=== PATIENT | male | born 1985 | race Caucasian/White ===

== ENCOUNTER 2024-05-27 14:20 | Emergency (ER) | payer MEDICARE, MEDICAID, SELFPAY ==
--- NOTE | 2024-05-27 14:30 | ED_ITS ---
HPI - General Adult General Chief complaint: General Medical Stated complaint: wants to r/o sepsis Time Seen by Provider: 05/27/24 20:14 Source: patient Limitations: no limitations History of Present Illness ED Provider: Irma Cast PA-C HPI narrative: 38-year-old male With the extensive psychiatric history presents requesting a 2nd opinion. Patient was recently admitted to [facility], he was discharged 2 days ago, after ICU admission for anticholinergic toxicity . Patient states he is concerned he is septic. Patient states he was reading about anticholinergic toxicity, and that he thinks instead he was septic.Denies fevers. Patient has pending follow up with his primary care provider next week. Related Data Allergies Allergy/AdvReac Type Severity Reaction Status Date / Time prazosin AdvReac Unknown Verified 05/27/24 14:39 Review of Systems 2 Review of Systems: Yes all other systems are reviewed and are negative Constitutional: Constitutional: Denies fatigue and Denies fever(s) Cardiovascular: Cardiovascular: Denies chest pain Respiratory: Respiratory: Denies cough Gastrointestinal: Gastrointestinal: Denies abdominal pain, Denies diarrhea, Denies nausea and Denies vomiting Endocrine: Endocrine: Denies fatigue [facility] Past Medical History Attestation statement: The following information was validated with the patient. Social History Social History Advance Directives: No Advance Directives Information Provided: Yes Do you have a plan to hurt others: No Plan Physical Exam ED Vital Signs: Vital Signs - 24 hr 05/27/24 14:31 05/27/24 20:27 05/27/24 21:58 Temperature 98.7 F 98.1 F 97.8 F Pulse Rate 79 65 85 Respiratory Rate 18 14 18 Blood Pressure 130/84 116/65 121/85 Pulse Oximetry 97 96 97 Oxygen Delivery Method Room Air Room Air Room Air BMI result Body Mass Index 31.7 Course Course Course Narrative: This is a rapid medical exam performed by Teresa Balderrama NP: Additional HPI, ROS, PE not included below will be deferred to primary provider. Patient is a 38-year-old male presenting to the emergency department stating that he was recently discharged from the ICU at [facility], states that the ICU docs weren't sure what was wrong with me, they thought it was anticholinergic syndrome, but I basically checked off all the boxes for sepsis and want a second opinion. States he had a bad headache and vomiting upon discharge, has been unable to sleep. Headache has improved. VS normal in triage. Reports recent influenza, pna, states had blisters to bottom of feet which were bleeding and popped. Plan: viral panel, labs, will obtain records from [facility] Medical Decision Making Medical Decision Making MDM Narrative: 38-year-old male With the extensive psychiatric history presents requesting a 2nd opinion. Patient was recently admitted to [facility], he was discharged 2 days ago, after ICU admission for anticholinergic toxicity . Patient states he is concerned he is septic. Patient states he was reading about anticholinergic toxicity, and that he thinks instead he was septic.Denies fevers. Patient has pending follow up with his primary care provider next week. Problem: Psychiatric illness History: Per patient I have considered the following differential diagnoses: Anxiety over health, Plan: I have relayed to the patient that I reviewed his chart from [facility]. Sepsis was considered during his ICU admission, he was febrile, they worked him up for a source, he received empiric antibiotics. The blood cultures had to have resulted negative prior to his discharge, he was there for 6 days. I also relate to the patient that his vitals are completely normal here in the emergency room he does not have a fever, his labs are also completely not suggestive of sepsis. I also relayed to him that his discharge diagnoses entailed toxic ingestion secondary to drug ingestion with delirium, I explained the parameters to him. He seems relieved. We will discharge now. Lab Data 05/27/24 14:45 05/27/24 14:45 Labs: Lab Results 05/27/24 Range/Units 14:45 WBC 9.7 (4.8-10.8) X10*3/uL RBC 5.07 (4.60-5.80) X10*6/uL Hgb 14.5 (14.0-18.0) g/dl Hct 43.6 (42.0-52.0) % MCV 86.0 (80.0-98.0) fL MCH 28.6 (27.0-33.0) pg MCHC 33.3 (31.0-36.0) g/dl RDW 13.9 (11.0-16.0) % Plt Count 363 (160-400) X10*3/uL MPV 8.7 L (9.4-12.4) fL Immature Gran % (Auto) 0.7 H (0.0-0.4) % Neut % (Auto) 54.3 (45-73) % Lymph % (Auto) 33.0 (20-40) % Terry % (Auto) 9.3 (2-11) % Eos % (Auto) 1.7 (0-4) % Baso % (Auto) 1.0 (0-2) % Lymph # (Auto) 3.2 (1.2-4.9) X10*3/uL Terry # (Auto) 0.9 (0.1-1.2) X10*3/uL Eos # (Auto) 0.2 (0.0-0.4) X10*3/uL Baso # (Auto) 0.1 (0.0-0.2) X10*3/uL Abs Immat Gran (auto) 0.07 H (0.00-0.03) X10*3/uL Absolute Neuts (auto) 5.3 (2.0-8.3) x10*3/uL Absolute Nucleated RBC 0.000 (0.0-0.012) X10*3/uL Nucleated RBC % (auto) 0.0 (0.0-0.2) /100WBC Sodium 145 (135-145) mmol/L Potassium 4.2 (3.3-5.1) mmol/L Chloride 113 H (96-108) mmol/L Carbon Dioxide 26 (22-29) mmol/L Anion Gap 10 L (12-20) BUN 14 (9-16) mg/dL Creatinine 0.97 (0.5-1.4) mg/dL Estim Creat Clear Calc 113.6 Estimated GFR > 60 Random Glucose 89 (60-115) mg/dL Calcium 9.6 (8.4-10.2) mg/dL Magnesium 1.9 (1.6-2.6) mg/dL Total Bilirubin 0.5 (0.0-1.0) mg/dL AST 20 (5-37) U/L ALT 27 (0-40) U/L Alkaline Phosphatase 67 (39-117) U/L Total Protein 7.0 (6.5-8.0) g/dL Albumin 4.6 (3.5-5.0) g/dL Influenza Type A (PCR) NEGATIVE (Negative) Influenza Type B (PCR) NEGATIVE (Negative) RSV RNA Qual (PCR) NEGATIVE (Negative) SARS-CoV-2 RNA (RT-PCR) NEGATIVE (Negative) Discharge Plan Discharge Clinical Impression: Anxiety about health Patient Disposition: Home, Self-Care Additional Instructions: all of your screening labs were completely normal, you were vitals were completely normal as well. You were not septic. Sepsis was officially ruled out prior to your discharge from [facility]. I reviewed the paperwork from your recent admission. Continue to follow up with your healthcare providers as an outpatient. Stand Alone Forms: Work/School Release Interventions: ED Discharge Assessment Last Done: 05/27/24 21:58 Discharge Date/Time: 05/27/24 22:08 Print Language: Portuguese
[2024-05-27 14:31] VITALS: BP 130/84; PULSE 79; RESP 18; TEMP 37.1; O2SAT 97; BMI 31.7
[2024-05-27 14:50] LABS: MANUAL DIFF FLAG NO
[2024-05-27 14:53] LABS: Basophils Absolute Auto 0.1 X10*3/uL (0.0-0.2); Eosinophils Absolute Auto 0.2 X10*3/uL (0.0-0.4); Eosinophils Percent Auto 1.7 % (0-4); Hematocrit 43.6 % (42.0-52.0); Hemoglobin 14.5 g/dl (14.0-18.0); Imm Gran Abs Auto 0.07 X10*3/uL (0.00-0.03); Imm Gran Pct Auto 0.7 % (0.0-0.4); Lymphocytes Absolute Auto 3.2 X10*3/uL (1.2-4.9); Mean Corpuscular HGB Conc 33.3 g/dl (31.0-36.0); Mean Corpuscular Hemoglobin 28.6 pg (27.0-33.0); Mean Platelet Volume 8.7 fL (9.4-12.4); Monocytes Absolute Auto 0.9 X10*3/uL (0.1-1.2); Monocytes Percent Auto 9.3 % (2-11); Neutrophils Absolute Auto 5.3 x10*3/uL (2.0-8.3); Neutrophils Percent Auto 54.3 % (45-73); Platelet Count 363 X10*3/uL (160-400); Red Blood Count 5.07 X10*6/uL (4.60-5.80); Red Cell Distribution Width 13.9 % (11.0-16.0); White Blood Count 9.7 X10*3/uL (4.8-10.8)
[2024-05-27 15:08] LABS: Alanine Aminotransferase 27 U/L (0-40); Albumin Level 4.6 g/dL (3.5-5.0); Alkaline Phosphatase 67 U/L (39-117); Anion Gap 10 (12-20); Aspartate Amino Transferase 20 U/L (5-37); Bilirubin Total 0.5 mg/dL (0.0-1.0); Blood Urea Nitrogen 14 mg/dL (9-16); Calcium 9.6 mg/dL (8.4-10.2); Carbon Dioxide 26 mmol/L (22-29); Chloride 113 mmol/L (96-108); Creatinine Clr Calc Pharmacy 113.6; Estimated Glomerular Filt Rate > 60; Glucose Random 89 mg/dL (60-115); Magnesium 1.9 mg/dL (1.6-2.6); Potassium 4.2 mmol/L (3.3-5.1); Sodium 145 mmol/L (135-145)
[2024-05-27 15:31] LABS: Influenza A PCR NEGATIVE (Negative); Influenza B PCR NEGATIVE (Negative); Resp Syncy Virus RNA Qual PCR NEGATIVE (Negative); SARS COV2 PCR INHOUSE NEGATIVE (Negative)
[2024-05-27 20:27] VITALS: BP 116/65; PULSE 65; RESP 14; TEMP 36.7; O2SAT 96
[2024-05-27 21:58] VITALS: BP 121/85; PULSE 85; RESP 18; TEMP 36.6; O2SAT 97
== END 2024-05-27 22:08 | disposition home or self-care (01) ==
PROVIDERS: Registered Nurse Emergency; Emergency Provider Emergency Medicine
DX: F41.8 Other specified anxiety disorders (principal); R51.9 Headache, unspecified; Z03.818 Encounter for observation for suspected exposure to other biological agents ruled out
CPT/HCPCS: 0241U; 36415; 80053; 83735; 85025; 99282; 99283